=== PATIENT | male | born 1965 | race Caucasian/White ===

== ENCOUNTER → 2017-01-12 | Outpatient (CLI) | payer BC ==
[~2017-01-12] MED LIST: GADOBUTROL 10mMol/10ml INJECTION IV ONE; LORA-610 PO; MELO-267 PO; SALINE FLUSH 10ml SYRINGE ONE
--- NOTE | 2017-01-12 16:29 | DI ---
Indication: ITS.REASON: D17.0 Benign lipomatous neoplasm of skin and subcutaneous tissue palpable right neck mass PROCEDURE: MRI NECK W/WO CONTRAST: Encounter: Initial Comparison: None Technique: Multiplanar multisequence MR imaging of the neck was performed with and without contrast. Contrast: 7.5 mL Gadavist Findings: There is a T1 uniformly hyperintense mass in the right mid to lower cervical region overlying the trapezius muscle. This measures approximately 5.6 cm transversely and 2.2 cm anteroposteriorly on axial image #19. It is approximate 6.5 cm craniocaudal dimension. This mass is confined to the subcutaneous fat and shows uniform fat suppression on the fat suppressed sequences. No other mass lesions identified. Minimal age appropriate degenerative change seen in the mid to lower cervical spine. Postcontrast images show no areas of abnormal enhancement within the fatty mass. No abnormal bone marrow enhancement appreciated. There is some flow artifact seen from the great vessels in the neck. Impression: The right neck mass is consistent with a benign lipoma. If there is interval enlargement or development of pain in this area a well-differentiated liposarcoma should be considered. .
== END ==
LOC: IMA 14:32
PROVIDERS: ATTEND Surgery Plastic and Reconstructive Surgery
DX: D17.0 Benign lipomatous neoplasm of skin and subcutaneous tissue of head, face and neck (principal)
CPT/HCPCS: 70543; A9585